=== PATIENT | male | born 1945 | race African-American/Black ===

== ENCOUNTER 2018-07-19 12:49 | Emergency (ER) | payer OTHER ==
[~2018-07-19] VITALS: Ht 185.4 cm; Wt 91.1 kg
[2018-07-19] MEDS ORDERED: IPRATROPIUM BROMIDE 0.5 MG/2.5 ML NEB SOLUTION NEB ONE (13:00)
[2018-07-19] MEDS ORDERED: ALBUTEROL SULFATE 2.5 MG/0.5 ML NEB SOLUTION NEB ONE (13:00)
[2018-07-19 13:07] LABS: ABG A-A DIFF O2 313.9 mmHg (10-20.0); ABG BASE EXCESS -7.7 mmol/L (-2.0-3.0); ABG CARBOXYHEMOGLOBIN 1.4 % (0.0-1.5); ABG METHEMOGLOBIN 0.5 % (0.0-1.5); ABG OXYGEN CONTENT 25.6 mL/dL (15.0-23.0); ABG OXYGEN SATURATION 99.9 % (95.0-98.0); ABG PCO2 54 mmHg (35-45); PO2, ARTERIAL BG 345.5 mmHg (75.0-83.0); SOURCE, BLOOD GAS ARTERIAL; TEMPERATURE, FAHRENHEIT, BG 98.5 FAHREN (96.0-98.6)
[2018-07-19 13:08] LABS: ABG PH 7.196 (7.35-7.450); INSPIRATORY TIME, BG 0.9 SEC; O2 DEVICE,BLOOD GAS BIPAP (ROOM AIR); SITE, BLOOD GAS RT RADIAL; SPONTANEOUS VT, BG 682 ml
[2018-07-19 13:31] LABS: BASOPHILS % (AUTO) 0.4 % (0.0-2.0); EOSINOPHILS % (AUTO) 2.5 % (1.0-6.0); HEMATOCRIT 54.9 % (41-53); HEMOGLOBIN 17.6 g/dL (13.5-17.5); LYMPHOCYTES % (AUTO) 30.5 % (22.0-44.0); MEAN CORPUSCULAR HEMOGLOBIN 28.3 pg (26.0-34.0); MEAN CORPUSCULAR HGB CONC 32.1 G/dL (31.0-37.0); MEAN CORPUSCULAR VOLUME 88 fL (80-100); MONOCYTES # (AUTO) 0.9 K/uL (0.1-1.0); MONOCYTES % (AUTO) 9.4 % (2.0-9.0); NEUTROPHILS # (AUTO) 5.6 K/uL (1.8-7.7); NEUTROPHILS % (AUTO) 57.2 % (40.0-70.0); RED BLOOD CELL COUNT(AUTO) 6.23 MIL/uL (4.50-5.90); RED CELL DISTRIBUTION WIDTH 13.9 % (11.5-14.5)
[2018-07-19 13:40] LABS: ANION GAP 14 mmol/L (8-16); CALCIUM, TOTAL 8.9 mg/dL (8.8-10.5); CARBON DIOXIDE 23 mmol/L (22-29); CHLORIDE 105 mmol/L (98-107); CREATININE 1.29 mg/dL (0.60-1.30); GLUCOSE,RANDOM 221 mg/dL (70-110); POTASSIUM 3.6 mmol/L (3.5-5.1); SODIUM SERUM 142 mmol/L (136-145); UREA NITROGEN, BLOOD 10 mg/dL (7-18)
[2018-07-19 13:43] LABS: GLOMERULAR FILTR. RATE CALC > 60 mL/min (>60)
[2018-07-19] MEDS ORDERED: FUROSEMIDE 40 MG/4 ML VIAL IVP ONE (13:45)
[2018-07-19 13:46] LABS: ALANINE AMINOTRANSFERASE 29 U/L (12-78); ALBUMIN 3.1 g/dL (3.4-5.0); ALKALINE PHOSPHATASE 132 U/L (46-116); ASPARTATE AMINOTRANSFERASE 28 U/L (15-37); BILIRUBIN,TOTAL 0.6 mg/dL (0.1-1.0); CREATINE KINASE, TOTAL ONLY 45 U/L (39-308); TOTAL PROTEIN, SERUM 8.2 g/dL (6.4-8.2)
[2018-07-19 13:51] LABS: PROTHROMBIN TIME 10.1 SEC (9.4-11.6)
[2018-07-19 14:01] LABS: PLATELET COUNT (AUTO) 278 K/uL (150-450)
[2018-07-19 14:03] LABS: B-TYPE NATRIURETIC PEPTIDE 272 pg/mL (0-100)
[2018-07-19 14:30] LABS: DIGOXIN < 0.20 ng/mL (0.90-2.00)
[2018-07-19 14:36] LABS: ABG A-A DIFF O2 295.4 mmHg (10-20.0); ABG BASE EXCESS -0.2 mmol/L (-2.0-3.0); ABG CARBOXYHEMOGLOBIN 1.8 % (0.0-1.5); ABG HCO3 24.3 mmol/L (22.0-26.0); ABG METHEMOGLOBIN 0.3 % (0.0-1.5); ABG OXYGEN CONTENT 23.5 mL/dL (15.0-23.0); ABG OXYGEN SATURATION 97.1 % (95.0-98.0); ABG OXYHEMOGLOBIN 95.1 % (94.0-100.0); ABG PCO2 41 mmHg (35-45); ABG PH 7.396 (7.35-7.450); ABG TOTAL HEMOGLOBIN 17.6 G/dL (12.0-18.0); PO2, ARTERIAL BG 87.4 mmHg (75.0-83.0); SOURCE, BLOOD GAS ARTERIAL; TEMPERATURE, FAHRENHEIT, BG 98.5 FAHREN (96.0-98.6)
[2018-07-19 14:37] LABS: O2 DEVICE,BLOOD GAS BIPAP (ROOM AIR); SITE, BLOOD GAS RT RADIAL; SPONTANEOUS VT, BG 993 ml
[2018-07-19] MEDS ORDERED: AZITHROMYCIN 500 MG/NS 250 ML IV ONE (15:00)
[2018-07-19] MEDS ORDERED: CefTRIAXone 1 GM/DEXTROSE 50 ML IV ONE (15:00)
[2018-07-19 15:11] LABS: APPEARANCE,URINE CLOUDY (CLEAR); BILIRUBIN,URINE NEGATIVE (NEGATIVE); GLUCOSE, URINE (UA) 100 mg/dL (NEGATIVE); KETONES,URINE NEGATIVE (NEGATIVE); LEUKOCYTE ESTERASE ,URINE NEGATIVE (NEGATIVE); NITRATE,URINE NEGATIVE (NEGATIVE); OCCULT BLOOD,URINE SMALL (NEGATIVE); PROTEIN,URINE SEE CONFIRM (NEGATIVE)
[2018-07-19] MEDS ORDERED: ISOS20TA9 PO (15:39)
[2018-07-19] MEDS ORDERED: DIGO0.12 PO (15:39)
[2018-07-19] MEDS ORDERED: LISI-662 PO (15:39)
[2018-07-19] MEDS ORDERED: NETA2.5D OU (15:39)
[2018-07-19] MEDS ORDERED: ATOR40TA28 PO (15:39)
[2018-07-19] MEDS ORDERED: HYDR-2924 PO (15:39)
[2018-07-19] MEDS ORDERED: BRIM15DR8 OU (15:39)
[2018-07-19] MEDS ORDERED: METO50 PO (15:39)
[2018-07-19] MEDS ORDERED: FAMO-135 PO (15:39)
[2018-07-19] MEDS ORDERED: AMLO-512 PO (15:39)
[2018-07-19] MEDS ORDERED: FURO20TA4 PO (15:39)
[2018-07-19] MEDS ORDERED: KDUR10 PO (15:39)
[2018-07-19] MEDS ORDERED: LATA7.5D OU (15:39)
[2018-07-19] MEDS ORDERED: PILO4OS OP (15:39)
[2018-07-19 15:53] LABS: SULFOSALICYLIC ACID,URINE Trace (Negative)
[2018-07-19 15:57] LABS: BACTERIA,URINE Few /HPF (None Seen); SQUAMOUS EPITHELIAL CELL,UR Few /LPF (None Seen)
[2018-07-19 18:20] VITALS: BP 140/92
== END 2018-07-19 18:25 | disposition short-term general hospital (02) ==
LOC: EDUNIT# 12:49 → EMS 12:50
DX: J96.00 Acute respiratory failure, unspecified whether with hypoxia or hypercapnia (principal); I50.9 Heart failure, unspecified; J18.9 Pneumonia, unspecified organism; F17.200 Nicotine dependence, unspecified, uncomplicated
CPT/HCPCS: 36415; 71045; 80053; 80162; 81001; 82550; 82805; 83880; 84484; 85025; 85610; 85730; 87086; 93005; 94640; 94660; 96365; 96367; 96375; 99291; J0456; J0696; J1940